=== PATIENT | female | born 1940 | race Caucasian/White ===

== ENCOUNTER → 2017-01-26 | Outpatient (CLI) | payer MEDICARE, BC ==
--- NOTE | 2017-01-26 15:33 | RADIOLOGY REPORT PS360 ---
KNEE-4 OR 5 VIEWS-LT HISTORY: BILAT KNEE AND LT HIP PAIN ORDERING PHYSICIAN: Naldo Keys MD PATIENT AGE: 76 years COMPARISON: None FINDINGS: Weightbearing views are performed. Moderate osteoarthritic changes involving the medial compartment. A small calcific density is once again noted involving the lateral aspect of the medial compartment similar to the previous exam and could be due to a loose body or osteophyte There are mild osteoarthritic changes of the patellofemoral joint. Multiple surgical clips are present along the medial posterior distal thigh and leg IMPRESSION: Moderate osteoarthritic changes of the left knee worse at the medial compartment overall not significant change with possible loose intra-articular body
--- NOTE | 2017-01-26 15:34 | RADIOLOGY REPORT PS360 ---
KNEE-4 OR 5 VIEWS-RT HISTORY: BILAT KNEE AND LT HIP PAIN ORDERING PHYSICIAN: Naldo Keys MD PATIENT AGE: 76 years COMPARISON: 02/13/2015 FINDINGS: Weightbearing images are performed. There is moderate narrowing of the joint space medially with osteophyte formation. Mild osteoarthritic changes involve the patellofemoral joint. No fracture or dislocation. No lytic or blastic change. IMPRESSION: Moderate osteoarthritic change of the right knee at the medial compartment and patellofemoral joint. No significant change from the previous exam
--- NOTE | 2017-01-26 15:43 | RADIOLOGY REPORT PS360 ---
HIP LT 2-3V W/PELVIS IF PERFOR HISTORY: Left hip pain BILAT KNEE AND LT HIP PAIN ORDERING PHYSICIAN: Naldo Keys MD PATIENT AGE: 76 years COMPARISON: None FINDINGS: There are mild osteoarthritic changes of the left hip with mild osteophyte formation laterally. A surgical clip is present over the left groin area. No fracture or dislocation. No lytic or blastic change. IMPRESSION: Mild osteoarthritis of the left hip
== END ==
LOC: RAD 13:41
DX: M25.562 Pain in left knee (principal); M25.561 Pain in right knee; M25.552 Pain in left hip